=== PATIENT | female | born 1985 | race Caucasian/White ===

== ENCOUNTER 2019-09-13 15:46 | Outpatient (CLI) | payer OTHER ==
[2019-09-13] MEDS ORDERED: PRENATAL TABLE1 EAC3 PO (16:35)
== END 2019-09-14 13:18 | disposition home or self-care (01) ==
LOC: OBS/DEL 15:46
PROVIDERS: ATTEND Obstetrics & Gynecology
DX: O26.892 Other specified pregnancy related conditions, second trimester (principal); Z04.3 Encounter for examination and observation following other accident; W18.39XA Other fall on same level, initial encounter; Y93.89 Activity, other specified; Y92.89 Other specified places as the place of occurrence of the external cause; Y99.8 Other external cause status

== ENCOUNTER 2019-12-11 09:23 | Inpatient (IN) | payer OTHER ==
[~2019-12-11] VITALS: Ht 152.4 cm; Wt 66.2 kg
[~2019-12-11 09:23] MED LIST: PRENATAL TABLE1 EAC3 PO
== END 2019-12-13 12:24 | disposition home or self-care (01) | DRG 807 ==
LOC: LDR 09:23 → SURG-SUITE 09:23
PROVIDERS: ADMIT Obstetrics & Gynecology; ATTEND Obstetrics & Gynecology
PROC: 10E0XZZ Delivery of Products of Conception, External Approach (ICD-10-PCS; principal; 2019-12-11)
PROC: 0HQ9XZZ Repair Perineum Skin, External Approach (ICD-10-PCS; 2019-12-11)
PROC: 4A1HXFZ Monitoring of Products of Conception, Cardiac Rhythm, External Approach (ICD-10-PCS; 2019-12-11)
PROC: 3E033VJ Introduction of Other Hormone into Peripheral Vein, Percutaneous Approach (ICD-10-PCS; 2019-12-11)
DX: O70.0 First degree perineal laceration during delivery (principal); Z37.0 Single live birth; Z3A.38 38 weeks gestation of pregnancy; Z20.828 Contact with and (suspected) exposure to other viral communicable diseases